=== PATIENT | female | born 1955 | race Caucasian/White ===

== ENCOUNTER 2019-11-18 16:32 | Emergency (ER) | payer OTHER ==
[2019-11-18] MEDS ORDERED: Lidocaine 1% 20 ML MDV INJECT ONE (16:42)
[2019-11-18] MEDS ORDERED: Bacitracin Oint 1 GM U/D Packet TOP ONE (16:43)
[2019-11-18] MEDS ORDERED: Diphtheria,Pertussis(Acell),Tetanus Vaccine 0.5 ML SDV IM ONE (17:44)
[2019-11-18] MEDS ORDERED: Cephalexin 250 MG Cap PO ONE (17:48)
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
--- NOTE | 2019-11-18 18:34 | CRLCT ---
INDICATION: Head injury TECHNIQUE: CT head without contrast. COMPARISON: None available FINDINGS: There is mild age-related cortical atrophy. The ventricles are within normal limits for the patient`s age. There is no mass effect or midline shift. There is no loss of paez-white differentiation. There is a small left frontal cortical density on image 16 of series 2, not seen on adjacent images, which could be artifactual. There is no evidence of a gross acute extra-axial hemorrhage. No acute calvarial fracture is seen. Foci of anterior right scalp soft tissue gas are seen. There are small right parietal scalp calcifications, nonspecific. Mild mucosal thickening is seen in the frontal sinus inferior recesses. The mastoid air cells are clear. The visualized orbits are within normal limits. IMPRESSION: No evidence of a gross acute extra-axial hemorrhage, mass effect or loss of paez-white differentiation. A punctate left frontal cortical density, only seen on 1 image, could be artifactual. Given the right scalp injury, if clinically indicated, a short-term follow-up study in 4-8 hours can be obtained. Dictated by Harshal Huggins MD @ 11/18/2019 6:31:29 PM Please note that all CT scans at this facility use dose modulation, iterative reconstruction, and/or weight-based dosing when appropriate to reduce radiation dose to as low as reasonably achievable. Dictated by: Harshal Huggins MD @ 11/18/2019 18:33:15 (Electronically Signed)
== END 2019-11-18 19:13 | disposition home or self-care (01) ==
LOC: JP.ED 16:32
DX: S01.111A Laceration without foreign body of right eyelid and periocular area, initial encounter (principal); Z23 Encounter for immunization; V89.2XXA Person injured in unspecified motor-vehicle accident, traffic, initial encounter
CPT/HCPCS: 12054; 70450; 90471; 90715; 99284; A9270; J2001